=== PATIENT | female | born 1995 | race Hispanic/Latino ===

== ENCOUNTER 2023-07-19 07:17 | Day surgery (SDC) | payer OTHER ==
[2023-07-19] MEDS ORDERED: Acetaminophen 500 MG TAB ONE (07:23)
[2023-07-19] MEDS ORDERED: Acetaminophen 500 MG TAB PO SCH (07:30)
[2023-07-19] MEDS ORDERED: Iron Sucrose Complex 500 MG in Sodium Chloride 0.9% 250 ML 250 ML IVPB SCH (07:30)
== END 2023-07-19 12:15 | disposition home or self-care (01) ==
LOC: CSHSDC 07:17
PROVIDERS: ATTEND Student in an Organized Health Care Education/Training Program
DX: O99.013 Anemia complicating pregnancy, third trimester (principal); Z3A.00 Weeks of gestation of pregnancy not specified
CPT/HCPCS: J1756; J7050

== ENCOUNTER 2024-05-01 20:01 | Emergency (ER) | payer MEDICAID ==
[2024-05-01] MEDS ORDERED: Ibuprofen 200 MG TAB ONE (20:45)
== END 2024-05-01 22:12 | disposition home or self-care (01) ==
LOC: CSHERS 20:01
DX: B34.9 Viral infection, unspecified (principal)
CPT/HCPCS: 87081; 87428; 87430; 99284

== ENCOUNTER 2025-01-12 10:22 | Inpatient (IN) | payer MEDICAID, OTHER ==
[2025-01-11 13:39] LABS: Hematocrit 33.0 % (34.9-44.5); Hemoglobin 11.0 g/dL (12.0-15.5); Mean Corpuscular Hemoglobin 28.5 pg (27.0-33.0); Mean Corpuscular Volume 85.5 fL (81.6-98.3); Platelet Count 234 10x3/uL (150-450); Red Blood Cell (RBC) Count 3.86 10x6/uL (3.90-5.03); White Blood Cell (WBC) Count 8.65 10x3/uL (3.5-10.5)
[2025-01-11 14:13] LABS: Hep B Surf Ag Non-Reactive S/CO (NonReactive)
[2025-01-11 14:15] LABS: Syphilis Antibody Index 0.09 S/CO (<1.00 Non-Reactive)
[~2025-01-12 10:22] MED LIST: Bicitra 30 ML UDCUP PO PRN; Carboprost 250 MCG/ML AMP IM PRN; Diphenoxylate HCl/Atropine Tablet PO PRN; Methylergonovine 0.2 MG/ML VIAL IM PRN; Ondansetron PF 4 MG/2 ML Vial IVP PRN; Oxytocin 30 units/NS 500 ML 500 ML IV SCH; Tranexamic Acid 1,000 MG/10 ML VIAL IVP PRN; hydrALAZINE 20 MG/ML VIAL SLOW IVP PRN
[2025-01-12 11:49] VITALS: BMI 30.2
[2025-01-12] MEDS: Famotidine/PF 20 mg/2ml Vial SLOW IVP PRN (11:51)
[2025-01-12] MEDS ORDERED: Meperidine HCl/PF 25 MG (1 mL) VIAL SLOW IVP PRN (12:04)
[2025-01-12] MEDS ORDERED: Ondansetron PF 4 MG/2 ML Vial IVP PRN ×3 (12:04→13:47)
[2025-01-12] MEDS ORDERED: HYDROmorphone 0.5 MG/0.5 ML SYRINGE SLOW IVP PRN (12:05)
[2025-01-12] MEDS ORDERED: Communication Order-Pharmacy FS SCH (12:15)
[2025-01-12] MEDS ORDERED: Methylergonovine 0.2 MG/ML VIAL IM PRN (13:47)
[2025-01-12] MEDS ORDERED: hydrALAZINE 20 MG/ML VIAL SLOW IVP PRN (13:47)
[2025-01-12] MEDS ORDERED: Oxytocin 30 units/NS 500 ML 500 ML IV SCH (14:00)
[2025-01-12] MEDS: Ketorolac Tromethamine 30 MG (1 mL) VIAL IVP SCH (14:29)
[2025-01-12] MEDS: HYDROmorphone 0.5 MG/0.5 ML SYRINGE SLOW IVP PRN (15:25)
[2025-01-12] MEDS: diphenhydrAMINE 50 MG/ML VIAL IVP PRN (18:25)
[2025-01-12] MEDS: Ketorolac Tromethamine 30 MG (1 mL) VIAL IVP PRN (20:45)
[2025-01-12] MEDS: Ferrous Sulfate 325 MG TAB PO SCH (21:38)
[2025-01-13] MEDS: Dexamethasone 10 MG/ML VIAL ONE (01:48)
[2025-01-13] MEDS: Oxytocin 10 UNITS/ML VIAL ONE ×2 (03:15→03:57)
[2025-01-13 05:42] LABS: Hematocrit 22.6 % (34.9-44.5); Hemoglobin 7.4 g/dL (12.0-15.5); Mean Corpuscular Hemoglobin 28.7 pg (27.0-33.0); Mean Corpuscular Volume 87.6 fL (81.6-98.3); Platelet Count 202 10x3/uL (150-450); Red Blood Cell (RBC) Count 2.58 10x6/uL (3.90-5.03); White Blood Cell (WBC) Count 14.47 10x3/uL (3.5-10.5)
[2025-01-13] MEDS: Sodium Ferric Gluconate 250 MG in Sodium Chloride 0.9% 250 ML 250 ML IVPB SCH (09:38)
[2025-01-13] MEDS: Acetaminophen 325 MG TAB PO PRN (09:40)
[2025-01-13] MEDS: Ibuprofen 800 MG TAB PO SCH (16:14)
[2025-01-13] MEDS: Simethicone Chewable 80 MG TAB PO PRN (16:14)
[2025-01-13] MEDS: HYDROcodone/Acetaminophen 5/325 mg Tablet PO PRN ×2 (17:10→21:07)
[2025-01-13] MEDS: Tranexamic Acid 1,000 MG/10 ML VIAL ONE ×2 (19:24→19:25)
[2025-01-14 04:56] LABS: Hematocrit 22.2 % (34.9-44.5); Hemoglobin 7.4 g/dL (12.0-15.5)
[2025-01-14 08:13] VITALS: BP 110/68; TEMP 98
== END 2025-01-14 12:25 | disposition home or self-care (01) | DRG 785 ==
LOC: CSHLD 10:22 → CSHPP 16:02
PROVIDERS: ADMIT Obstetrics & Gynecology; ATTEND Obstetrics & Gynecology
PROC: 10D00Z1 Extraction of Products of Conception, Low, Open Approach (ICD-10-PCS; principal; 2025-01-12)
PROC: 0UB70ZZ Excision of Bilateral Fallopian Tubes, Open Approach (ICD-10-PCS; 2025-01-12)
DX: O24.420 Gestational diabetes mellitus in childbirth, diet controlled (principal); Z3A.39 39 weeks gestation of pregnancy; Z98.890 Other specified postprocedural states; O34.212 Maternal care for vertical scar from previous cesarean delivery; Z37.0 Single live birth; Z79.899 Other long term (current) drug therapy
CPT/HCPCS: 36415; 36416; 51702; 85014; 85018; 85027; 86780; 86850; 86900; 86901; 87340; 88302; J1100; J1171; J1200; J1308; J1885; J2274; J2550; J2590; J2916; J3010; J7050; J7120